=== PATIENT | female | born 1965 | race Caucasian/White ===

== ENCOUNTER 2017-12-01 03:02 | Emergency (ER) | payer BC, OTHER ==
[2017-12-01 03:03] VITALS: BMI 48.3
[2017-12-01 03:34] VITALS: RESP 18; TEMP 97.8
[2017-12-01] MEDS ORDERED: DiphenhydrAMINE 50 mg/ml Inj IM STA (03:56)
--- NOTE | 2017-12-01 03:56 | ED PDOC ---
Arrival/HPI - General Chief Complaint: Abnormal Skin Integrity Time Seen by Provider: 12/01/17 03:31 Historian: Patient - History of Present Illness Narrative History of Present Illness (Text): 12/01/17 03:56 Ale Wilcox is a 52 year old female, whose past medical history includes psoriasis, who presents to the Emergency department complaining of a rash. Patient states she has been experiencing a diffuse pruritic rash for the past few days. Patient reports she has a history of psoriasis and notes she was recently exposed to her nephew who was diagnosed with scabies. Patient denies any fever, chills, headache, dizziness, facial swelling, or any other complaints. Symptom Onset: Gradual Symptom Course: Unchanged Activities at Onset: Light Context: Home Past Medical History - Provider Review Nursing Documentation Reviewed: Yes - Tetanus Immunization Tetanus Immunization: Unknown - Reproductive Menopause: Yes - Past Medical History Past Medical History: No Previous - Psychiatric Hx Substance Use: No - Past Surgical History Past Surgical History: No Previous - Surgical History Hx Orthopedic Surgery: Yes (left knee replacement) Family/Social History - Physician Review Nursing Documentation Reviewed: Yes Family/Social History: Unknown Family HX Smoking Status: Light Smoker < 10 Cigarettes Daily Hx Alcohol Use: No Hx Substance Use: No Allergies/Home Meds Allergies/Adverse Reactions: Allergies No Known Allergies Allergy (Verified 12/01/17 03:30) Review of Systems - Physician Review All systems were reviewed & negative as marked: Yes - Review of Systems Constitutional: Normal. absent: Fevers Eyes: Normal ENT: Normal Respiratory: Normal. absent: SOB, Cough Cardiovascular: Normal. absent: Chest Pain Gastrointestinal: Normal. absent: Abdominal Pain, Diarrhea, Nausea, Vomiting Genitourinary Female: Normal. absent: Dysuria, Frequency, Hematuria, Urine Output Changes Musculoskeletal: Normal. absent: Back Pain, Neck Pain Skin: Rash, Pruritis Neurological: Normal. absent: Headache, Dizziness Endocrine: Normal Hemo/Lymphatic: Normal Psychiatric: Normal Physical Exam Vital Signs Reviewed: Yes Vital Signs Temp Pulse Resp BP Pulse Ox 12/01/17 04:40 70 18 120/71 96 12/01/17 03:30 97.8 F 67 18 121/71 95 Temperature: Afebrile Blood Pressure: Normal Pulse: Regular Respiratory Rate: Normal Appearance: Positive for: Well-Appearing, Non-Toxic, Comfortable Pain Distress: None Mental Status: Positive for: Alert and Oriented X 3 - Systems Exam Head: Present: Atraumatic, Normocephalic Pupils: Present: PERRL Extroacular Muscles: Present: EOMI Conjunctiva: Present: Normal Mouth: Present: Moist Mucous Membranes Neck: Present: Normal Range of Motion Respiratory/Chest: Present: Clear to Auscultation, Good Air Exchange. No: Respiratory Distress, Accessory Muscle Use Cardiovascular: Present: Regular Rate and Rhythm, Normal S1, S2. No: Murmurs Abdomen: Present: Normal Bowel Sounds. No: Tenderness, Distention, Peritoneal Signs Back: Present: Normal Inspection Upper Extremity: Present: Normal Inspection. No: Cyanosis, Edema Lower Extremity: Present: Normal Inspection. No: Edema Neurological: Present: GCS=15, CN II-XII Intact, Speech Normal Skin: Present: Warm, Dry, Rashes (Scattered areas of erythema/excoriations/ scabbed lesions to arms, chests, and hands), Normal Color Psychiatric: Present: Alert, Oriented x 3, Normal Insight, Normal Concentration Medical Decision Making ED Course and Treatment: 12/01/17 03:56 Impression: 52 year old female complaining of diffuse pruritic rash for past few days. Plan: -- Benadryl -- Keflex -- Reassess and disposition Progress Notes: On re-evaluation, patient feels better and is in no acute distress. I have discussed the results and plan with the patient, who expresses understanding. Patient in agreement with plan to be discharged home. Patient is stable for discharge. Patient was instructed to follow up with physician or return if symptoms worsen or new concerning symptoms arise. - Medication Orders Current Medication Orders: Discontinued Medications Cephalexin Monohydrate (Keflex) 500 mg PO ONCE STA PRN Reason: Protocol Stop: 12/01/17 03:59 Last Admin: 12/01/17 04:25 Dose: 500 mg Diphenhydramine HCl (Benadryl) 50 mg IM ONCE STA Stop: 12/01/17 03:57 Last Admin: 12/01/17 04:27 Dose: 50 mg IM Administration Charges Document 12/01/17 04:27 JOL (Rec: 12/01/17 04:27 JOL [id number]) Injection Site MAR Injection Site Left Deltoid Charges for Administration # of IM Administrations 1 - Scribe Statement The provider has reviewed the documentation as recorded by the Scribe Carmen Tejadan Provider Scribe Attestation: All medical record entries made by the Scribe were at my direction and personally dictated by me. I have reviewed the chart and agree that the record accurately reflects my personal performance of the history, physical exam, medical decision making, and the department course for this patient. I have also personally directed, reviewed, and agree with the discharge instructions and disposition. Disposition/Present on Arrival - Present on Arrival Any Indicators Present on Arrival: No History of DVT/PE: No History of Uncontrolled Diabetes: No Urinary Catheter: No History of Decub. Ulcer: No History Surgical Site Infection Following: None - Disposition Have Diagnosis and Disposition been Completed?: Yes Diagnosis: Scabies, Pruritus Disposition: HOME/ ROUTINE Disposition Time: 04:04 Patient Plan: Discharge Condition: STABLE Discharge Instructions (ExitCare): Scabies (ED) Additional Instructions: take meds as prescribed/follow up with your doctor this week Prescriptions: DiphenhydrAMINE [Benadryl] 50 mg PO Q6 PRN #24 cap PRN Reason: Itching / Pruritus Cephalexin [cephalexin] 500 mg PO BID #14 cap Permethrin 5% [Permethrin 5% Cream] 30 gm EXT ONCE #1 tube Forms: [facility] ([place])
[2017-12-01 05:31] VITALS: BP 120/71; PULSE 70; O2SAT 96
== END 2017-12-01 04:40 | disposition home or self-care (01) ==
LOC: ED 03:02
DX: B86 Scabies (principal)
CPT/HCPCS: 96372; 99283; J1200